=== PATIENT | female | born 1980 | race Two or more races ===

== ENCOUNTER 2022-12-01 20:50 | Emergency (ER) | payer OTHER ==
[~2022-12-01] VITALS: Ht 162.6 cm; Wt 114.0 kg
[2022-12-01 21:03] VITALS: BP 168/100; PULSE 93; RESP 16; TEMP 98.6; O2SAT 99
[2022-12-01] MEDS ORDERED: HYDR-4001 MT (22:20)
[2022-12-01] MEDS ORDERED: IBUP-2029 PO (22:20)
[2022-12-01] MEDS ORDERED: AMOX500T2 MT (22:20)
== END 2022-12-01 23:14 | disposition home or self-care (01) ==
LOC: ER 20:50
DX: K02.9 Dental caries, unspecified (principal); K04.7 Periapical abscess without sinus
CPT/HCPCS: 99283